=== PATIENT | female | born 1985 | race Caucasian/White ===

== ENCOUNTER 2017-08-13 15:58 | Outpatient (CLI) | payer SELFPAY ==
[2017-08-13 17:05] LABS: AMORPHOUS SEDIMENT,URINE TRACE /HPF; APPEARANCE,URINE CLOUDY; BILIRUBIN,URINE NEGATIVE (NEGATIVE); GLUCOSE, URINE NEGATIVE (NEGATIVE); KETONES,URINE NEGATIVE (NEGATIVE); LEUKOCYTE ESTERASE,URINE LARGE (NEGATIVE); NITRITE,URINE NEGATIVE (NEGATIVE); PROTEIN,URINE NEGATIVE (NEGATIVE); URINE SPECIFIC GRAVITY 1.009; UROBILINOGEN,URINE NEGATIVE mg/dL (<2.0)
[2017-08-13 17:19] LABS: URINE BARBITURATES SCREEN NEGATIVE; URINE METHADONE SCREEN NEGATIVE; URINE OPIATES LOW NEGATIVE; URINE PHENCYCLIDINE SCREEN NEGATIVE
== END 2017-08-13 17:19 | disposition home or self-care (01) ==
LOC: LC 15:58
PROVIDERS: ATTEND Obstetrics & Gynecology
DX: O26.893 Other specified pregnancy related conditions, third trimester (principal); M54.9 Dorsalgia, unspecified; Z3A.32 32 weeks gestation of pregnancy
CPT/HCPCS: 80307; 81001

== ENCOUNTER 2017-09-05 17:49 | Outpatient (CLI) | payer MEDICAID ==
[2017-09-05 18:25] LABS: APPEARANCE,URINE CLOUDY; BILIRUBIN,URINE NEGATIVE (NEGATIVE); GLUCOSE, URINE NEGATIVE (NEGATIVE); KETONES,URINE NEGATIVE (NEGATIVE); LEUKOCYTE ESTERASE,URINE LARGE (NEGATIVE); NITRITE,URINE NEGATIVE (NEGATIVE); PROTEIN,URINE NEGATIVE (NEGATIVE)
[2017-09-05 18:35] LABS: BACTERIA,URINE TRACE /HPF
[2017-09-05 18:40] LABS: URINE BARBITURATES SCREEN NEGATIVE; URINE METHADONE SCREEN NEGATIVE; URINE OPIATES LOW NEGATIVE; URINE PHENCYCLIDINE SCREEN NEGATIVE
[2017-09-05] MEDS ORDERED: ACETAMINOPHEN 325 MG TABLET ONE (19:30)
[2017-09-05] MEDS ORDERED: RINGERS SOLUTION,LACTATED 1,000 ML IV PRN (19:51)
[2017-09-05] MEDS ORDERED: CEFTRIAXONE INJ 1000 MG VIAL IV ONE (20:06)
[2017-09-05] MEDS ORDERED: CEFTRIAXONE 1 GM/D5W RTU 1 GM/50 ML RTUPB IV ONE (20:09)
--- NOTE | 2017-09-05 21:12 | Non Stress Test Report ---
Non Stress Test Datetime Report Generated by CPN: 09/05/2017 21:12 DEMOGRAPHIC Test Number: 1 EGA NST: 35.1 INDICATION Indication for Study: Decreased Movement VITAL SIGNS Temperature - NST: 99.1 NBPSYS NST: 111 NBPDIA NST: 62 URINE RESULTS Urine Blood - NST: Positive MONITORING Monitor Explained: Monitor Explained; Test Explained; Patient Verbalized Understanding Time on Monitor: 09/05/2017 18:02 Time off Monitor: 09/05/2017 20:47 NST Duration: 165 NST INTERVENTIONS NST Interventions: PO Hydration; IV Fluids; Reposition Patient Physician Notified NST: Chel Peters BABY A: [id number] BABY A Movement : Present Contraction Frequency : 0 FHR Baseline : 155 Accelerations : 15X15 Decelerations : None Variability : Moderate 6-25bpm NST Review: Meets Criteria for Reactive NST NST Review and Verified By : MARILU ThompsonT Results: Reactive NST REPORT Report Trigger: Send Report
== END 2017-09-05 20:56 | disposition home or self-care (01) ==
LOC: LC 17:49
PROVIDERS: ATTEND Obstetrics & Gynecology
PROC: 4A1HXCZ Monitoring of Products of Conception, Cardiac Rate, External Approach (ICD-10-PCS; principal; 2017-09-05)
DX: O36.8130 Decreased fetal movements, third trimester, not applicable or unspecified (principal); O23.43 Unspecified infection of urinary tract in pregnancy, third trimester; Z3A.35 35 weeks gestation of pregnancy
CPT/HCPCS: 59025; 87086; 81001; 80307; J3490; J0696

== ENCOUNTER 2017-09-06 21:58 | Emergency (ER) | payer MEDICAID ==
[2017-09-06] MEDS ORDERED: NORMAL SALINE 1000 ML 1,000 ML IV ONE (23:12)
--- NOTE | 2017-09-06 23:31 | ER Document Report ---
ED Respiratory Problem <MER SCHNEIDER - Last Filed: 09/07/17 07:42> <EDI MATT - Last Filed: 09/07/17 08:56> - General Mode of Arrival: Medic Information source: Patient TRAVEL OUTSIDE OF THE [place] IN LAST 30 DAYS: No - HPI Patient complains to provider of: Short of breath. No: Cough Onset: This evening Duration: Better Quality of pain: No pain Pain Level: Denies Context: , Recent long distance trvl, Smoker Short of Breath: Mild Associated symptoms: Anxiety, Fever - Yesterday of 99.4, Heart racing, Leg/calf/ joint pain, Short of breath. denies: Congestion, Cough, Wheezing Similar symptoms previously: No Recently seen / treated by doctor: Yes <SALOMÓN PADGETT - Last Filed: 09/07/17 14:15> - General Chief Complaint: Shortness Of Breath Stated Complaint: SHORTNESS OF BREATH Time Seen by Provider: 09/06/17 22:57 Notes: Patient presents complaining of shortness of breath that started around 5 PM this evening. Patient states that at the time she measured her heart rate using a cell phone torey and her heart rate was 129. Patient is currently 35 weeks . Patient states she was seen in the hospital yesterday on labor and delivery for a labor check and was diagnosed with a UTI. Patient states she was given an antibiotic around 9 or 10:00 in the evening and 2:00 this morning developed itching all over as well as shortness of breath. Patient is not currently taking any oral antibiotics. Patient does report that she does occasionally smoke and did recently travel to and from [place], returning back from [place] a week ago. Patient presently denies any dyspnea, chest pain or cough. She does complain of left calf pain that she states started this evening (SALOMÓN PADGETT) - Related Data Allergies/Adverse Reactions: No Known Allergies Allergy (Unverified 08/13/17 16:37) Past Medical History - General Information source: Patient Last Menstrual Period: 35 weeks - Social History Smoking Status: Current Some Day Smoker Frequency of alcohol use: None Drug Abuse: None Lives with: Family Family History: Reviewed & Not Pertinent - Past Medical History Cardiac Medical History: Denies: Hx DVT, Hx Pulmonary Embolism Psychiatric Medical History: Reports: Hx Anxiety Past Surgical History: Reports: Hx Cholecystectomy <SALOMÓN PADGETT - Last Filed: 09/07/17 14:15> Review of Systems - Review of Systems Constitutional: Fever - Low-grade 99.4, Recent illness - Treated for UTI last night EENT: No symptoms reported Cardiovascular: Palpitations, Heart racing Respiratory: Short of breath. denies: Cough Gastrointestinal: No symptoms reported. denies: Abdominal pain, Nausea, Vomiting Genitourinary: No symptoms reported Female Genitourinary: . denies: Vaginal bleeding Musculoskeletal: Muscle pain - left calf, Leg swelling Skin: No symptoms reported Hematologic/Lymphatic: No symptoms reported Neurological/Psychological: No symptoms reported <SALOMÓN PADGETT - Last Filed: 09/07/17 14:15> Physical Exam - General General appearance: Appears well, Alert In distress: None - HEENT Head: Normocephalic, Atraumatic Eyes: Normal Conjunctiva: Normal Nasal: Normal Mouth/Lips: Normal Mucous membranes: Normal Pharynx: Normal Neck: Normal, Supple. No: Lymphadenopathy - Respiratory Respiratory status: No respiratory distress. No: Labored Chest status: Nontender Breath sounds: Normal Chest palpation: Normal - Cardiovascular Rhythm: Regular Heart sounds: S1 appreciated, S2 appreciated Murmur: No - Abdominal Inspection: Gravid female Distension: No distension Tenderness: Nontender - Back Back: Normal, Nontender. No: CVA tenderness - Extremities General upper extremity: Normal inspection, Normal ROM General lower extremity: Normal inspection, Edema - subtle LLE, Normal ROM Calf: Tender - left calf - Neurological Neuro grossly intact: Yes Cognition: Normal [employer] Coma Scale Eye Opening: Spontaneous Gloria Coma Scale Verbal: Oriented [employer] Coma Scale Motor: Obeys Commands Gloria Coma Scale Total: 15 - Psychological Associated symptoms: Normal affect, Normal mood - Skin Skin Temperature: Warm Skin Moisture: Dry Skin Color: Normal <SALOMÓN PADGETT - Last Filed: 09/07/17 14:15> - Vital signs Vitals: Temp Pulse Resp BP Pulse Ox 99.1 F 101 H 18 113/67 97 09/06/17 22:13 09/06/17 22:13 09/06/17 22:13 09/06/17 22:13 09/06/17 22:13 Course - Laboratory Result Diagrams: 09/07/17 00:25 09/07/17 00:25 <FRIANT,MER - Last Filed: 09/07/17 07:42> - Laboratory Result Diagrams: 09/07/17 00:25 09/07/17 00:25 <EDI MATT - Last Filed: 09/07/17 08:56> - Laboratory Result Diagrams: 09/07/17 00:25 09/07/17 00:25 <SALOMÓN PADGETT - Last Filed: 09/07/17 14:15> - Re-evaluation Re-evalutation: Nurse came to me and told me that patient was angry about needing another IV, nurse states that they have tried several times and were not successful in getting an IV for the CTA. Reevaluated patient, patient was given Vistaril upon request, she did allow me to place the IV using ultrasound-guided access. She became calm afterwards. CTA showing no acute abnormalities. Patient states she has hepatitis C. This is consistent with elevated LFTs. Patient still pending her Doppler ultrasound. On reevaluation patient denies any complaints, she does appear comfortable. 09/07/17 07:15 called, had many questions, answered them to the best of my ability. Seemed satisfied at the time. Called and spoke to Dr. Beard, radiologist who read CTA, asked for recommendation on how to rule out blood clot effectively. He states that at this time his recommendation is Doppler of the lower extremities. This combined with limited but negative CTA would give the most likely picture of patient not having a clot without subjecting her to additional radiation and IV dye. Doppler ultrasound has already been ordered. 09/07/17 07:40 Patient introduced to Liseth CHU at bedside. No current complaints. Vital signs improved with heart rate in the 80s. (MER SCHNEIDER) 09/07/17 23:[address] Ryder regarding patient presentation, discussed plan diagnostic evaluation. Recommends ordering a D-dimer test as patient seems to be in a low to moderate risk group for PE. 09/07/17 02:[address] Crocker who advises CT of the chest given patient's elevated d-dimer and risk factors. Also recommends keeping patient until in the morning so that she may have a venous duplex study of her left lower extremity. Discussed plan of care with patient, patient is agreeable with this plan at this time. Bedside report and handout given to Juan GARCIA (SALOMÓN PADGETT) - Vital Signs Vital signs: Temp Pulse Resp BP Pulse Ox 98.6 F 72 16 112/77 100 09/07/17 09:05 09/07/17 09:05 09/07/17 09:05 09/07/17 09:05 09/07/17 09:05 - Laboratory Laboratory results interpreted by me: 09/07/17 09/07/17 09/07/17 00:25 00:25 00:45 WBC 14.3 H Absolute Neutrophils 10.0 H D-Dimer Chloride 108 H Carbon Dioxide 17 L BUN 6 L Creatinine 0.50 L AST 134 H ALT 130 H Alkaline Phosphatase 229 H Ur Leukocyte Esterase LARGE H 09/07/17 01:25 WBC Absolute Neutrophils D-Dimer 1.15 H Chloride Carbon Dioxide BUN Creatinine AST ALT Alkaline Phosphatase Ur Leukocyte Esterase Discharge <MER SCHNEIDER - Last Filed: 09/07/17 07:42> <EDI MATT - Last Filed: 09/07/17 08:56> <SALOMÓN PADGETT - Last Filed: 09/07/17 14:15> - Discharge Clinical Impression: Pain of left calf, SOB (shortness of breath) Condition: Stable Disposition: HOME, SELF-CARE Additional Instructions: Return immediately for any new or worsening symptoms. Follow up with primary care provider, call tomorrow to make followup appointment. Referrals: DOREEN VEGA MD [Primary Care Provider] - Follow up as needed
[2017-09-07 00:47] LABS: ABSOLUTE BASOPHILS # (AUTO) 0.1 10^3/uL (0.0-0.2); ABSOLUTE EOSINOPHILS # (AUTO) 0.3 10^3/uL (0.0-0.6); ABSOLUTE LYMPHOCYTES (AUTO) 2.8 10^3/uL (0.5-4.7); BASOPHILS % (AUTO) 0.6 % (0-2); EOSINOPHILS % (AUTO) 2.1 % (0-6); HEMATOCRIT 37.5 % (36.0-47.0); HEMOGLOBIN 13.2 g/dL (12.0-15.5); HGB HCT DIFFERENCE 2.1; LYMPHOCYTES % (AUTO) 19.7 % (13-45); MEAN CORPUSCULAR HEMOGLOBIN 30.8 pg (27.0-33.4); MEAN CORPUSCULAR HGB CONC 35.1 g/dL (32.0-36.0); MEAN CORPUSCULAR VOLUME 88 fl (80-97); MONOCYTES % (AUTO) 7.2 % (3-13); RED BLOOD COUNT 4.28 10^6/uL (3.72-5.28); RED CELL DISTRIBUTION WIDTH 12.9 % (11.5-14.0); SEGMENTED NEUTROPHILS % (AUTO) 70.4 % (42-78); WHITE BLOOD COUNT 14.3 10^3/uL (4.0-10.5)
[2017-09-07 00:53] LABS: ALANINE AMINOTRANSFERASE 130 U/L (9-52); ALBUMIN 3.5 g/dL (3.5-5.0); ALKALINE PHOSPHATASE 229 U/L (38-126); ANION GAP 14 (5-19); ASPARTATE AMINO TRANSFERASE 134 U/L (14-36); BILIRUBIN,DIRECT 0.3 mg/dL (0.0-0.4); BILIRUBIN,TOTAL 0.5 mg/dL (0.2-1.3); BLOOD UREA NITROGEN 6 mg/dL (7-20); CALCIUM 9.8 mg/dL (8.4-10.2); CARBON DIOXIDE 17 mmol/L (22-30); CHLORIDE 108 mmol/L (98-107); GLUCOSE 93 mg/dL (75-110); POTASSIUM 4.2 mmol/L (3.6-5.0); TOTAL PROTEIN 6.7 g/dL (6.3-8.2)
[2017-09-07 01:06] LABS: APPEARANCE,URINE SLIGHTLY-CLOUDY; BILIRUBIN,URINE NEGATIVE (NEGATIVE); GLUCOSE, URINE NEGATIVE (NEGATIVE); KETONES,URINE NEGATIVE (NEGATIVE); LEUKOCYTE ESTERASE,URINE LARGE (NEGATIVE); NITRITE,URINE NEGATIVE (NEGATIVE); PROTEIN,URINE NEGATIVE (NEGATIVE); URINE SPECIFIC GRAVITY 1.004; UROBILINOGEN,URINE NEGATIVE mg/dL (<2.0)
--- NOTE | 2017-09-07 01:15 | RADIOLOGY REPORT (SQ) ---
EXAM DESCRIPTION: CHEST PA/LAT CLINICAL HISTORY: 31 years, Female, sob, shield abd COMPARISON: None. NUMBER OF VIEWS: Two. TECHNIQUE: Frontal and lateral. LIMITATIONS: None. FINDINGS: Adequate lung volumes, clear parenchyma, normal cardiac silhouette, and intact bony thorax. IMPRESSION: Normal chest radiographs. 2011 [employer]- All Rights Reserved
[2017-09-07] MEDS ORDERED: NITROFURANTOIN MONOHYD/M-CRYST 100 MG CAPSULE PO ONE (01:47)
[2017-09-07] MEDS ORDERED: HYDROXYZINE PAMOATE 25 MG CAPSULE PO ONE (02:20)
--- NOTE | 2017-09-07 03:56 | RADIOLOGY REPORT (SQ) ---
EXAM DESCRIPTION: CTA CHEST CLINICAL HISTORY: 31 years Female, dyspnea, +preg(35 wks), tachycardia, recent travel,+smoker,d-dimer 1.15 COMPARISON: CR, 09/07/2017. TECHNIQUE: 100 mL Isovue-370. This exam was performed according to our departmental dose-optimization program, which includes automated exposure control, adjustment of the mA and/or kV according to patient size and/or use of iterative reconstruction technique. Limitation: As below. FINDINGS: No acute findings. No gross evidence of pulmonary embolus; insufficient enhancement of the pulmonary arteries is achieved measuring 140 Hounsfield units decreasing sensitivity.Specificity. No right ventricular strain. CTA of the thoracic aorta is normal with no evidence of aneurysm or dissection. Likely residual thymic tissue. Otherwise, inferior neck, axillae, lungs, mediastinum, and upper abdomen, and bony skeleton appear unremarkable. IMPRESSION: Limited exam. No acute cardiopulmonary findings. There is no gross evidence of pulmonary embolus although suboptimal pulmonary arterial enhancement was achieved decreasing sensitivity for pulmonary embolus. Consider alternative, repeat, and/or follow-up investigation as clinically warranted.
--- NOTE | 2017-09-07 08:22 | RADIOLOGY REPORT (SQ) ---
EXAM DESCRIPTION: VENOUS UNILATERAL LOWER COMPLETED DATE/TIME: 09/07/2017 8:13 am REASON FOR STUDY: LLE pain, swelling COMPARISON: None. TECHNIQUE: Dynamic and static reid scale and color images acquired of the left leg venous system. Se lected spectral images acquired with additional compression and augmentation maneuvers. The contralat eral common femoral vein and saphenofemoral junction were also imaged. Images stored on PACS. LIMITATIONS: None. FINDINGS: COMMON FEMORAL: Normal phasicity, compression and augmentation. No visualized echogenic ma terial on reid scale. No defects on color images. FEMORAL: Normal compression and augmentation. No visualized echogenic material on reid scale. No defe cts on color images. POPLITEAL: Normal compression, augmentation. No visualized echogenic material on reid scale. No defec ts on color images. CALF VESSELS: Normal compression, augmentation. No visualized echogenic material on reid scale. No de fects on color images. GSV and SSV: Normal compression, augmentation. No visualized echogenic material on reid scale. No def ects on color images. ANY DEEP VENOUS INSUFFICIENCY: No. ANY EVIDENCE OF POPLITEAL CYST: No. OTHER: No other significant finding. CONTRALATERAL COMMON FEMORAL VEIN AND SAPHENOFEMORAL JUNCTION: Normal phasicity, compression and augmentation. No visualized echogenic material on reid scale. No de fects on color images. IMPRESSION: NO EVIDENCE DVT OR SVT IN THE LEFT LEG. TECHNICAL DOCUMENTATION: JOB ID: [id number] [employer]- All Rights Reserved
[2017-09-07 09:23] VITALS: BP 112/77
== END 2017-09-07 09:05 | disposition home or self-care (01) ==
LOC: ER 21:58
DX: O26.893 Other specified pregnancy related conditions, third trimester (principal); R06.02 Shortness of breath; R50.9 Fever, unspecified; R00.2 Palpitations; O99.89 Other specified diseases and conditions complicating pregnancy, childbirth and the puerperium; M79.1 Myalgia; O99.334 Smoking (tobacco) complicating childbirth; M79.89 Other specified soft tissue disorders; O98.42 Viral hepatitis complicating childbirth; B19.20 Unspecified viral hepatitis C without hepatic coma; O99.344 Other mental disorders complicating childbirth; F41.9 Anxiety disorder, unspecified; Z3A.35 35 weeks gestation of pregnancy; Z87.440 Personal history of urinary (tract) infections
CPT/HCPCS: 99285; 96360; 36415; 87086; 85025; 80053; 81001; 85379; 93971; 71020; 71275; J3490 ×2; J7030; J8499

== ENCOUNTER 2017-09-18 16:52 | Outpatient (CLI) | payer MEDICAID ==
--- NOTE | 2017-09-18 17:53 | Non Stress Test Report ---
Non Stress Test Datetime Report Generated by CPN: 09/18/2017 17:53 DEMOGRAPHIC EGA NST: 37.0 INDICATION Indication for Study: Decreased Movement MONITORING Monitor Explained: Monitor Explained; Test Explained; Patient Verbalized Understanding Time on Monitor: 09/18/2017 17:19 Time off Monitor: 09/18/2017 17:48 NST Duration: 29 NST INTERVENTIONS NST Interventions: PO Hydration Physician Notified NST: Dr. Keller BABY A: [id number] BABY A Movement : Present Contraction Frequency : 0 FHR Baseline : 145 Accelerations : 15X15 Decelerations : None Variability : Moderate 6-25bpm NST Review: Meets Criteria for Reactive NST NST Review and Verified By : Jose Cruz Wilson RN NST Results: Reactive NST REPORT Report Trigger: Send Report
== END 2017-09-18 17:56 | disposition home or self-care (01) ==
LOC: LC 16:52
PROVIDERS: ATTEND Obstetrics & Gynecology
PROC: 4A1HXCZ Monitoring of Products of Conception, Cardiac Rate, External Approach (ICD-10-PCS; principal; 2017-09-18)
DX: O36.8130 Decreased fetal movements, third trimester, not applicable or unspecified (principal); Z3A.37 37 weeks gestation of pregnancy
CPT/HCPCS: 59025

== ENCOUNTER 2017-10-06 06:49 | Inpatient (IN) | payer MEDICAID ==
[2017-10-03 12:47] LABS: AMORPHOUS SEDIMENT,URINE TRACE /HPF; APPEARANCE,URINE CLOUDY; BILIRUBIN,URINE NEGATIVE (NEGATIVE); COLOR,URINE YELLOW; GLUCOSE, URINE NEGATIVE (NEGATIVE); KETONES,URINE NEGATIVE (NEGATIVE); LEUKOCYTE ESTERASE,URINE LARGE (NEGATIVE); NITRITE,URINE NEGATIVE (NEGATIVE); PROTEIN,URINE NEGATIVE (NEGATIVE); URINE SPECIFIC GRAVITY 1.008; UROBILINOGEN,URINE NEGATIVE mg/dL (<2.0)
[2017-10-03 13:04] LABS: URINE AMPHETAMINES SCREEN NEGATIVE; URINE BARBITURATES SCREEN NEGATIVE; URINE BENZODIAZEPINES SCREEN NEGATIVE; URINE COCAINE SCREEN NEGATIVE; URINE MARIJUANA (THC) SCREEN NEGATIVE; URINE METHADONE SCREEN NEGATIVE; URINE PHENCYCLIDINE SCREEN NEGATIVE
[2017-10-06] MEDS ORDERED: CEFAZOLIN 1 GM/D5W RTU 1 GM/50 ML RTUPB IV PRN (07:18)
[2017-10-06] MEDS ORDERED: RINGERS SOLUTION,LACTATED 1,000 ML IV PRN ×2 (07:22→12:37)
[2017-10-06 07:58] LABS: HEMATOCRIT 35.4 % (36.0-47.0); HEMOGLOBIN 11.9 g/dL (12.0-15.5); MEAN CORPUSCULAR HEMOGLOBIN 28.8 pg (27.0-33.4); MEAN CORPUSCULAR HGB CONC 33.6 g/dL (32.0-36.0); MEAN CORPUSCULAR VOLUME 86 fl (80-97); PLATELET COUNT 249 10^3/uL (150-450); RED BLOOD COUNT 4.14 10^6/uL (3.72-5.28); RED CELL DISTRIBUTION WIDTH 13.1 % (11.5-14.0); WHITE BLOOD COUNT 13.3 10^3/uL (4.0-10.5)
[2017-10-06] MEDS ORDERED: RINGERS SOLUTION,LACTATED 2,000 ML IV PRN (08:00)
[2017-10-06] MEDS ORDERED: EPHEDRINE SULFATE INJ 50 MG/1 ML AMPULE ONE (08:41)
[2017-10-06] MEDS ORDERED: MIDAZOLAM 2 MG/2 ML INJ ONE (08:41)
[2017-10-06] MEDS ORDERED: OXYTOCIN 10 UNIT/ML VIAL ONE (08:41)
[2017-10-06] MEDS ORDERED: FENTANYL CITRATE INJ/PF 100 MCG/2 ML AMPUL ONE (08:41)
[2017-10-06] MEDS ORDERED: ONDANSETRON HCL INJ/PF 4 MG/2 ML SDV ONE (08:41)
[2017-10-06] MEDS ORDERED: MEPERIDINE HCL/PF INJ 25 MG/1 ML DISP.SYRIN IV PRN (11:28)
[2017-10-06] MEDS ORDERED: OXYCODONE-ACETAMINOPHEN 5-325 MG TABLET PO PRN ×3 (11:28→12:37)
[2017-10-06] MEDS ORDERED: FENTANYL CITRATE INJ/PF 100 MCG/2 ML AMPUL IV PRN ×3 (11:28)
[2017-10-06] MEDS ORDERED: PROMETHAZINE HCL INJ 25 MG/1 ML VIAL IV PRN ×3 (11:28→12:37)
[2017-10-06] MEDS ORDERED: DIPHENHYDRAMINE HCL 50 MG/ML VIAL IV PRN (11:28)
[2017-10-06] MEDS ORDERED: MORPHINE SULFATE 10 MG/ML INJ IV PRN (11:28)
[2017-10-06] MEDS ORDERED: OXYTOCIN/NORMAL SALINE 20 UNIT/1,000 ML RTUINJ IV PRN (12:37)
[2017-10-06] MEDS ORDERED: ACETAMINOPHEN 100 ML IV PRN (12:37)
[2017-10-06] MEDS ORDERED: MEASLES,MUMPS&RUBELLA VACC/PF 0.5 ML VIAL SUBCUT PRN (12:37)
[2017-10-06] MEDS ORDERED: ACETAMINOPHEN 325 MG TABLET PO PRN (12:37)
[2017-10-06] MEDS ORDERED: DIPH/PERTUSS(ACELL)/TETANUS VAC/PF 0.5 ML SYR (>=10YO) IM PRN (12:37)
[2017-10-06] MEDS ORDERED: ACETAMINOPHEN 100 ML IV ONE (12:41)
[2017-10-06] MEDS ORDERED: KETOROLAC TROMETHAMINE INJ/PF 30 MG/1 ML SDV ONE (12:41)
--- NOTE | 2017-10-06 12:53 | OPERATIVE REPORT E ---
Operative Report NAME: DUDLEY HINTON : 1985 AGE: 31Y DATE OF SURGERY: 10/06/2017 ROOM: 227 PREOPERATIVE DIAGNOSES: 1. IUP at 39 weeks and 5 days. 2. Previous x4. 3. Undesired fertility. POSTOPERATIVE DIAGNOSES: 1. IUP at 39 weeks and 5 days. 2. Previous x4. 3. Undesired fertility. SURGEON: DOREEN VEGA M.D. EMPLOYMENT COUNSELOR: Guera Sellers, delivery driver assistant soil field technician. ANESTHESIA: Dr. James with a spinal. FINDINGS: Female infant in cephalic presentation with Apgars of 8 and 9. Multiple bladder flap adhesions to the lower uterine segment. COMPLICATIONS: None. ESTIMATED BLOOD LOSS: 600 mL. SPECIMENS REMOVED: Fallopian tube segments x2. PROCEDURE: Low transverse hysterotomy section with [place] tubal ligation. PROCEDURE IN DETAIL: The patient was taken to the operating room and prepared and draped in a normal sterile fashion in the supine position with a leftward tilt. A transverse skin incision was made with a scalpel following the patient's previous scar. This was carried through to the underlying layer of fascia with the same scalpel. The fascia was then dissected sharply using Sandoval's laterally. The rectus muscle was then divided from the fascia sharply with the Bovie and the rectus muscle was then divided. The peritoneal cavity was entered bluntly with good visualization of the bladder adhesions and the uterus. The bladder adhesions were taken down using Metzenbaum's and careful blunt dissection until the bladder was firmly away from our surgical site. A bladder blade was inserted and the hysterotomy was nicked in the center and extended laterally with surgeon finger fracture. The infant was then delivered atraumatically. The nose and mouth were suctioned with a suction bulb and the cord was clamped and cut, and the was handed off to awaiting pediatricians. Placenta was removed manually after a collection of the cord blood. The uterus was exteriorized and cleared of clots and debris. The hysterotomy was closed with 0 Monocryl in a running-locked fashion and a second layer of the same suture was used to imbricate to ensure hemostasis. Attention was then turned to the tubal ligation where a [place] was placed on each fallopian tube and the mesosalpinx was divided. The intermediate section of the fallopian tube was then tied off with 2 pieces of 2-0 Chromic and was ligated with Metzenbaum's. The pedicles were then coagulated with Bovie. The uterus was then returned to the abdomen and the pedicles were reinspected and found to be hemostatic. The rectus muscle and peritoneum were reapproximated with a mattress stitch of 2-0 Chromic. The fascia was closed with 0 Vicryl. The subcutaneous layer was closed with plain catgut and the skin was closed with 4-0 Monocryl. Patient tolerated the procedure well. Sponge, lap, and needle counts were correct x2. Patient was taken to recovery in stable condition. DICTATING PHYSICIAN: DOREEN VEGA M.D. [id number] PHY#: [id number] ID: [id number] JOB#: [id number] ACCT: [id number] cc:DOREEN VEGA M.D. >
[2017-10-06] MEDS ORDERED: MORPHINE SULFATE 10 MG/ML INJ ONE (13:14)
[2017-10-06] MEDS ORDERED: OXYTOCIN/NORMAL SALINE 20 UNIT/1,000 ML RTUINJ ONE (13:49)
[2017-10-06] MEDS ORDERED: HYDROMORPHONE HCL INJ/PF 2 MG/ML AMPULE ONE (13:56)
[2017-10-06] MEDS: HYDROMORPHONE HCL INJ/PF 2 MG/ML AMPULE IV PRN ×2 (13:57→17:28)
[2017-10-06] MEDS: OXYCODONE-ACETAMINOPHEN 5-325 MG TABLET PO PRN ×2 (15:03→20:10)
[2017-10-06] MEDS: DOCUSATE SODIUM 100 MG CAPSULE PO SCH (17:28)
[2017-10-06] MEDS: KETOROLAC TROMETHAMINE INJ/PF 30 MG/1 ML SDV IV SCH (21:26)
[2017-10-06] MEDS: SIMETHICONE 80 MG TAB.CHEW PO PRN (21:27)
[2017-10-07] MEDS: OXYCODONE-ACETAMINOPHEN 5-325 MG TABLET PO PRN ×2 (00:12→04:37)
[2017-10-07] MEDS: SIMETHICONE 80 MG TAB.CHEW PO PRN (03:40)
[2017-10-07] MEDS: KETOROLAC TROMETHAMINE INJ/PF 30 MG/1 ML SDV IV SCH (05:37)
[2017-10-07 06:41] LABS: HEMATOCRIT 29.7 % (36.0-47.0); HEMOGLOBIN 10.3 g/dL (12.0-15.5); MEAN CORPUSCULAR HEMOGLOBIN 29.6 pg (27.0-33.4); MEAN CORPUSCULAR HGB CONC 34.6 g/dL (32.0-36.0); MEAN CORPUSCULAR VOLUME 86 fl (80-97); PLATELET COUNT 258 10^3/uL (150-450); RED BLOOD COUNT 3.47 10^6/uL (3.72-5.28); RED CELL DISTRIBUTION WIDTH 13.3 % (11.5-14.0); WHITE BLOOD COUNT 10.3 10^3/uL (4.0-10.5)
[2017-10-07] MEDS ORDERED: OXYCODONE HCL IR 5 MG TABLET PO ONE (09:30)
--- NOTE | 2017-10-07 10:03 | PDOC PROGRESS REPORT ---
Subjective-OB Subjective: Post Delivery Day: 31 year old. Denies any needs at this time s/p repeat c/s with btl abdomen soft and nontender incision dry and intact pt reports increased pain nurse at bedside will switch to po dilaudid since tylenol recommendation for 24 hour period has been met reviewed with pt and spouse learning verbalized Physical Exam (OB) Vital Signs: Temp Pulse Resp BP Pulse Ox 98.6 F 78 18 112/60 100 10/07/17 08:19 10/07/17 08:19 10/07/17 08:19 10/07/17 08:19 10/07/17 08:19 Intake & Output 10/06/17 10/07/17 10/08/17 06:59 06:59 06:59 Intake Total 3250 Output Total 1575 Balance 1675 Weight 110.68 kg - Dressing Removed: No - opsite dressing in place Incision: Dressing Closure Type: Sutures - Lochia Lochia Amount: Scant < 10 ml Lochia Color: Rubra/Red - Abdomen Description: Tender, Soft Hernia Present: No Fundal Description: Firm, Midline Fundal Height: u/u - u/2 Objective-Diagnostic Laboratory: 10/07/17 06:17 10/07/17 06:17 WBC 10.3 RBC 3.47 L Hgb 10.3 L Hct 29.7 L MCV 86 MCH 29.6 MCHC 34.6 RDW 13.3 Plt Count 258
[2017-10-07] MEDS: DOCUSATE SODIUM 100 MG CAPSULE PO SCH ×2 (10:32→17:30)
[2017-10-07] MEDS: PRENATAL VITAMIN W DHA CAPSULE PO SCH (10:33)
[2017-10-07] MEDS ORDERED: HYDROXYZINE PAMOATE 50 MG CAPSULE PO PRN (11:04)
[2017-10-07] MEDS: IBUPROFEN 800 MG TABLET PO SCH ×2 (11:45→17:29)
[2017-10-07] MEDS: HYDROMORPHONE HCL 2 MG TABLET PO PRN ×3 (12:53→22:00)
[2017-10-08] MEDS: HYDROMORPHONE HCL 2 MG TABLET PO PRN ×2 (03:48→09:35)
[2017-10-08] MEDS: IBUPROFEN 800 MG TABLET PO SCH ×2 (05:40)
[2017-10-08 08:15] LABS: HEPATITS B SURFACE ANTIGEN Negative (Negative)
[2017-10-08] MEDS: DOCUSATE SODIUM 100 MG CAPSULE PO SCH (09:35)
[2017-10-08] MEDS: PRENATAL VITAMIN W DHA CAPSULE PO SCH (09:35)
[2017-10-08 10:15] VITALS: BP 112/60
--- NOTE | 2017-10-10 19:08 | PDOC DISCHARGE SUMMARY ---
Final Diagnosis - Final Diagnosis (1) S/P repeat low transverse Is this a current diagnosis for this admission?: Yes Discharge Data - Discharge Medication Home Medications: Vit/Iron Fum/Folic AC [ Tablet] 1 each PO DAILY 08/13/17 Hydroxyzine Pamoate [Vistaril 25 mg Capsule] 1 cap PO Q6H 09/05/17 Zolpidem Tartrate [Ambien] 10 mg PO PRN PRN 10/03/17 Reason(s) for Admission: Ceasarean Section-Repeat Intrapartum Procedure(s): : Low Cervical, Transverse - Diagnosis Test Laboratory: Temp Pulse Resp BP Pulse Ox 97.6 F 88 18 112/60 100 10/08/17 10:11 10/08/17 10:11 10/08/17 10:11 10/08/17 10:11 10/08/17 10:11 10/03/17 10/06/17 10/07/17 11:05 07:33 06:17 RBC 4.14 3.47 L Hgb 11.9 L 10.3 L Hct 35.4 L 29.7 L Urine Opiates Screen NEGATIVE - Discharge information/Instructions Discharge Activity: Activity As Tolerated, Balance Activity w/Rest, No Driving, No Lifting Over 10 Pounds, No Lifting/Push/Pulling, Pelvic Rest, No tub bath Discharge Diet: Regular Disposition: HOME, SELF-CARE Follow up with: [facility] in: 1
== END 2017-10-08 13:17 | disposition home or self-care (01) | DRG 766 ==
LOC: 2S 06:49
PROVIDERS: ADMIT Obstetrics & Gynecology; ATTEND Obstetrics & Gynecology
PROC: 0UB70ZZ Excision of Bilateral Fallopian Tubes, Open Approach (ICD-10-PCS; 2017-10-06)
PROC: 0UN90ZZ Release Uterus, Open Approach (ICD-10-PCS; 2017-10-06)
PROC: 4A1HXCZ Monitoring of Products of Conception, Cardiac Rate, External Approach (ICD-10-PCS; 2017-10-06)
PROC: 10D00Z1 Extraction of Products of Conception, Low, Open Approach (ICD-10-PCS; principal; 2017-10-06 10:15)
DX: O34.211 Maternal care for low transverse scar from previous cesarean delivery (principal); O99.89 Other specified diseases and conditions complicating pregnancy, childbirth and the puerperium; O99.334 Smoking (tobacco) complicating childbirth; O99.344 Other mental disorders complicating childbirth; F43.10 Post-traumatic stress disorder, unspecified; F17.200 Nicotine dependence, unspecified, uncomplicated; N73.6 Female pelvic peritoneal adhesions (postinfective); Z3A.39 39 weeks gestation of pregnancy; Z37.0 Single live birth; Z91.410 Personal history of adult physical and sexual abuse
CPT/HCPCS: 1961; 36415; 80307; 81001; 85027; 86592; 86850; 86900; 86901; 87340; 88302; 94799; J0131; J1170; J1885; J2250; J2270; J2405; J2590; J3010; J3490; J7120

== ENCOUNTER 2017-10-22 20:35 | Emergency (ER) | payer MEDICAID ==
[2017-10-22] MEDS ORDERED: ACETAMINOPHEN WITH CODEINE #3 TABLET PO ONE (22:20)
[2017-10-22] MEDS ORDERED: CEPHALEXIN 500 MG CAPSULE PO ONE (22:20)
[2017-10-22] MEDS ORDERED: IBUPROFEN 600 MG TABLET PO ONE (22:20)
--- NOTE | 2017-10-22 22:25 | ER Document Report ---
ED Suture/Wound Recheck - General Chief Complaint: Fever Stated Complaint: INCISION INFECTED Time Seen by Provider: 10/22/17 22:06 Notes: The patient is a 31-year-old female who presents with 1 day of redness around her incision site and feeling feverish. Her was on 10/06/17 and was performed due to a prior and for a tubal ligation. Patient also said that she was having intermittent right-sided chest tingling yesterday. Patient denies any drainage of the wound, urinary symptoms, shortness of breath, diarrhea, constipation, drainage from the wound, numbness or tingling. TRAVEL OUTSIDE OF THE [place] IN LAST 30 DAYS: No - Related Data Allergies/Adverse Reactions: red dye Allergy (Mild, Verified 10/03/17 10:31) Generalized Itching Past Medical History - General Information source: Patient - Social History Smoking Status: Unknown if Ever Smoked Family History: Reviewed & Not Pertinent - Past Medical History Cardiac Medical History: Denies: Hx DVT, Hx Pulmonary Embolism Renal/ Medical History: Denies: Hx Peritoneal Dialysis GI Medical History: Denies: Hx Gastroesophageal Reflux Disease Psychiatric Medical History: Reports: Hx Anxiety Past Surgical History: Reports: Hx Cholecystectomy Review of Systems - Review of Systems Notes: REVIEW OF SYSTEMS: CONSTITUTIONAL: -fevers, -chills EENT: -eye pain, -difficulty swallowing, -nasal congestion CARDIOVASCULAR: +chest pain, -syncope. RESPIRATORY: -cough, -SOB GASTROINTESTINAL: -abdominal pain, -nausea, -vomiting, -diarrhea GENITOURINARY: -dysuria, -hematuria MUSCULOSKELETAL: -back pain, -neck pain SKIN: +redness around wound HEMATOLOGIC: -easy bruising or bleeding. LYMPHATIC: -swollen, enlarged glands. NEUROLOGICAL: -altered mental status or loss of consciousness, -headache, - neurologic symptoms PSYCHIATRIC: -anxiety, -depression. ALL OTHER SYSTEMS REVIEWED AND NEGATIVE. Physical Exam - Vital signs Vitals: Temp Pulse Resp BP Pulse Ox 99.3 F 72 18 124/69 99 10/22/17 20:56 10/22/17 20:56 10/22/17 20:56 10/22/17 20:56 10/22/17 20:56 - Notes Notes: PHYSICAL EXAMINATION: GENERAL: Well-appearing, well-nourished and in no acute distress. Afebrile. HEAD: Atraumatic, normocephalic. EYES: Pupils equal round and reactive to light, extraocular movements intact, sclera anicteric, conjunctiva are normal. ENT: nares patent, oropharynx clear without exudates. Moist mucous membranes. NECK: Normal range of motion, supple without lymphadenopathy LUNGS: Breath sounds clear to auscultation bilaterally and equal. No wheezes rales or rhonchi. HEART: Regular rate and rhythm without murmurs ABDOMEN: Soft, nontender, normoactive bowel sounds. No guarding, no rebound. No masses appreciated. EXTREMITIES: Normal range of motion, no pitting or edema. No cyanosis. NEUROLOGICAL: Cranial nerves grossly intact. Normal speech, normal gait. Normal sensory and motor exams. PSYCH: Normal mood, normal affect. SKIN: Mild erythema around scar without drainage or fluctuance. Course - Re-evaluation Re-evalutation: Patient appears well. She is afebrile and has not had any Tylenol or Motrin prior to arrival. Her vital signs are normal. EKG does not show any evidence of ischemia and her chest pain is atypical for PE, ACS or aortic dissection at this time. Will begin Keflex for possible early cellulitis around her wound and have her follow-up with her OB tomorrow for a recheck of her symptoms. Given strict return precautions and she understands. - Vital Signs Vital signs: Temp Pulse Resp BP Pulse Ox 99.3 F 72 18 124/69 99 10/22/17 20:56 10/22/17 20:56 10/22/17 20:56 10/22/17 20:56 10/22/17 20:56 - EKG Interpretation by Me EKG shows normal: Sinus rhythm, [place], Intervals, QRS Complexes, ST-T Waves When compared to previous EKG there are: No significant change Discharge - Discharge Clinical Impression: Wound cellulitis Condition: Stable Disposition: HOME, SELF-CARE Additional Instructions: CELLULITIS: You have an infection of your skin and underlying soft tissues called cellulitis. This is due to bacteria, which can enter through any break in the skin, or even through an irritated hair follicle. Untreated, cellulitis will usually worsen. Antibiotics are required. Usually, warm packs or warm soaks, and elevation of the infected area are recommended. You should start getting better within 24 to 36 hours. Most infections respond quickly to the right medication. Follow-up care is important, however, to check for abscess (boil) formation, unsuspected foreign body, or resistant infection. If you develop fever, chills, or if the area of infection is becoming rapidly more swollen or painful, call the doctor at once. ANTIBIOTIC THERAPY: You have been given an antibiotic prescription. It's important that you take all the medication, unless instructed otherwise by your physician. Failure to complete the entire course can result in relapse of your condition. Common side effects of antibiotics include nausea, intestinal cramping, or diarrhea. Women may develop vaginal yeast infections, and babies can get yeast (thrush) in the mouth following the use of antibiotics. Contact your physician if you develop significant side effects from this medication. Allergy to this antibiotic can result in hives, wheezing, faintness, or itching. If symptoms of allergy occur, stop the medication and call the doctor. FOLLOW-UP CARE: If you have been referred to a physician for follow-up care, call the physician s office for an appointment as you were instructed or within the next two days. If you experience worsening or a significant change in your symptoms, notify the physician immediately or return to the Emergency Department at any time for re-evaluation. Prescriptions: Cephalexin Monohydrate [Keflex 500 mg Capsule] 500 mg PO BID 7 Days capsule Referrals: DOREEN VEGA MD [ACTIVE STAFF] - Follow up as needed
--- NOTE | 2017-10-22 22:38 | EKG REPORT ---
SEVERITY:- NORMAL ECG - SINUS RHYTHM : Confirmed by: Gabriel Castillo 22-Oct-2017 22:38:08
[2017-10-22 22:47] VITALS: BP 113/68
== END 2017-10-22 22:47 | disposition home or self-care (01) ==
LOC: ER 20:35
DX: O86.0 Infection of obstetric surgical wound (principal); L03.311 Cellulitis of abdominal wall; R50.9 Fever, unspecified; R07.9 Chest pain, unspecified; Z98.890 Other specified postprocedural states
CPT/HCPCS: 93005; 99283; 93010; J3490

== ENCOUNTER 2018-02-05 18:50 | Emergency (ER) | payer MEDICAID ==
[2018-02-05 18:58] VITALS: BP 134/73
[2018-02-05] MEDS ORDERED: CYCLOBENZAPRINE HCL 10 MG TABLET PO ONE (20:27)
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
--- NOTE | 2018-02-06 07:20 | EKG REPORT ---
SEVERITY:- NORMAL ECG - SINUS RHYTHM : Confirmed by: Vasu Barbour MD 06-Feb-2018 07:19:31
== END 2018-02-05 20:38 | disposition home or self-care (01) ==
LOC: ER 18:50
DX: M62.830 Muscle spasm of back (principal); F41.9 Anxiety disorder, unspecified; R06.02 Shortness of breath; R11.0 Nausea; Z91.048 Other nonmedicinal substance allergy status
CPT/HCPCS: 93005; 99284; 93010; J3490